=== PATIENT | male | born 1955 ===

== ENCOUNTER 2016-06-08 09:22 | Observation (INO) | payer OTHER ==
[2016-06-08 10:10] LABS: % IMMATURE GRANULYOCYTES 0.9 % (0.0-1.1); ABSOLUTE IMMATURE GRANULOCYTES 0.05 10^3/uL (0.00-0.10); ADD DIFF? NO; ADD MORPH? NO; ADD SCAN? NO; ATYPICAL LYMPHOCYTE FLAG 20 (0-99); FRAGMENT RBC FLAG 0 (0-99); HEMATOCRIT 41.5 % (40.0-51.0); LEFT SHIFT FLG 0 (0-99); LIPEMIA HEMOLYSIS FLAG 90 (0-99); MEAN CELL HEMOGLOBIN 30.5 pg (27.9-34.1); MEAN CELL HEMOGLOBIN CONCENTR. 36.1 g/dL (32.4-36.7); MEAN CELL VOLUME 84.5 fL (81.5-99.8); MEAN PLATELET VOLUME 8.8 fL (8.7-11.7); PLATELET CLUMPS FLAG 10 (0-99); PLATELET COUNT 205 10^3/uL (150-400); RED BLOOD CELL COUNT 4.91 10^6/uL (4.40-6.38); RED CELL DISTRIBUTION WIDTH 12.3 % (11.5-15.2)
--- NOTE | 2016-06-08 10:11 | CPEKG ---
Heart Rate: 75 RR Interval: 800 P-R Interval: 176 QRSD Interval: 90 QT Interval: 388 QTC Interval: 434 P [place]: 41 QRS [place]: -52 T Wave [place]: 31 EKG Severity - ABNORMAL ECG - EKG Impression: SINUS RHYTHM EKG Impression: LEFT ANTERIOR FASCICULAR BLOCK Electronically Signed By: Blake Wright 08-Jun-2016 15:43:50
--- NOTE | 2016-06-08 10:12 | EDPHY ---
H & P Stated Complaint: RUQ abd pain/nausea Time Seen by Provider: 06/08/16 09:34 HPI/ROS: CHIEF COMPLAINT: abdominal pain HISTORY OF PRESENT ILLNESS: 61-year-old male presents complaining mild intermittent nausea for the past 5 days and abdominal pain right upper quadrant that woke him up from his sleep at 1:30 a.m. patient reports this was associated with severe nausea. He took a Percocet and was able to fall back asleep and wakes up this morning with a right upper quadrant abdominal fullness and tenderness. He denies vomiting, he reports diarrhea for the past 4 days. No fevers or chills, no back pain, no difficulty urinating. He denies chest pain or shortness of breath. Patient reports a history of cholecystitis though at the same time he had Giardia and he did not have a cholecystectomy. He has had no symptoms since this time. Patient denies dark tarry stools, no blood in his stool. REVIEW OF SYSTEMS: A comprehensive 10 point review of systems is otherwise negative aside from elements mentioned in the history of present illness. Source: Patient Exam Limitations: No limitations - Personal History Current Tetanus/Diphtheria Vaccine: Yes - Medical/Surgical History Hx Asthma: No Hx Chronic Respiratory Disease: No Hx Diabetes: Yes Hx Cardiac Disease: No Hx Renal Disease: No Hx Cirrhosis: No Hx Alcoholism: No Hx HIV/AIDS: No Hx Splenectomy or Spleen Trauma: No Other PMH: Orthopedic surgery, med hx-diabetes type 2 - Social History Smoking Status: Never smoked - Physical Exam Exam: Physical Exam Gen: Alert and Oriented, NAD HEENT: PERRL, moist mucous membranes NECK: no meningismus CV: regular rate and regular rhythm PULM: CTAB, no wheezes ABDOMEN: soft, diffuse abdominal tenderness to palpation, worse in right lower quadrant. No rebound tenderness, positive Rovsing's. BS present BACK: No CVA tenderness NEURO: Neurologically grossly intact EXTREMITIES: normal appearing SKIN: no rash or break in skin on exposed skin PSYCH: answers questions appropriately. Constitutional: Initial Vital Signs Temperature (C) 36.4 C 06/08/16 09:25 Heart Rate 87 06/08/16 09:25 Respiratory Rate 18 06/08/16 09:25 Blood Pressure 128/81 H 06/08/16 09:25 O2 Sat (%) 94 06/08/16 09:25 O2 Delivery Mode Room Air Allergies/Adverse Reactions: Shellfish *RETIRED-01/26/12 [Shellfish] Allergy (Unknown, Verified 06/08/16 09: 23) Home Medications: Medication Instructions Recorded Simvastatin [Zocor 10 mg (RX)] 10 mg PO DAILY 02/21/12 Insulin Glargine [Lantus 100 15 units SC DAILY 02/01/14 UNITS/ML (*)] Insulin Lispro [humALOG LISPRO 100 10 unit SC TIDMEAL 11/05/15 units/ml (*)] Omeprazole [Prilosec 20 mg] 20 mg PO DAILY 03/14/16 Medical Decision Making - Diagnostics EKG Interpretation: EKG shows normal sinus rhythm, rate 75, left axis deviation, poor R-wave progression, no ST or T-wave abnormalities, no changes to comparison ekg in 2016. Imaging: Right upper quadrant ultrasound- IMPRESSIONS: 1. Diffuse gallbladder wall thickening, similar to prior study. There appears to be a gallstone lodged within the gallbladder neck. Findings suggest chronic cholecystitis. 2. Stable complex partially calcified right renal cysts. 3. Nonvisualization of the appendix. Results called to Lashell Guevara PA-C at the time of the interpretation. Dictated By: Jose Villatoro MD ED Course/Re-evaluation: 61-year-old insulin-dependent diabetic, nontoxic-appearing male presents with right upper and lower abdominal pain nausea and diarrhea. IV established, i- STAT, CBC, lipase and LFTs ordered along with an EKG and abdominal ultrasound. I-STAT chemistry panel shows normal electrolytes, creatinine of 0.7, blood glucose of 126. CBC is unremarkable, lipase is normal, LFTs are normal. 1200pm- Dr. Whitehead at bedside. 1300-Dr. Whitehead with the patient and take him to surgery to remove his gallbladder today. - Data Points Laboratory Results: Laboratory Results 06/08/16 09:58 06/08/16 09:58 WBC 5.85 10^3/uL (3.80-9.50) RBC 4.91 10^6/uL (4.40-6.38) Hgb 15.0 g/dL (13.7-17.5) POC Hgb 14.6 gm/dL (14.5-17.3) Hct 41.5 % (40.0-51.0) POC Hct 43 % (42.8-50.6) MCV 84.5 fL (81.5-99.8) MCH 30.5 pg (27.9-34.1) MCHC 36.1 g/dL (32.4-36.7) RDW 12.3 % (11.5-15.2) Plt Count 205 10^3/uL (150-400) MPV 8.8 fL (8.7-11.7) Neut % (Auto) 51.6 % (39.3-74.2) Lymph % (Auto) 36.4 % (15.0-45.0) [place] % (Auto) 7.0 % (4.5-13.0) Eos % (Auto) 2.9 % (0.6-7.6) Baso % (Auto) 1.2 % (0.3-1.7) Nucleat RBC Rel Count 0.0 % (0.0-0.2) Absolute Neuts (auto) 3.02 10^3/uL (1.70-6.50) Absolute Lymphs (auto) 2.13 10^3/uL (1.00-3.00) Absolute Monos (auto) 0.41 10^3/uL (0.30-0.80) Absolute Eos (auto) 0.17 10^3/uL (0.03-0.40) Absolute Basos (auto) 0.07 10^3/uL (0.02-0.10) Absolute Nucleated RBC 0.00 10^3/uL (0-0.01) Immature Gran % 0.9 % (0.0-1.1) Immature Gran # 0.05 10^3/uL (0.00-0.10) POC Sodium 142 mEq/L (134-144) POC Potassium 3.9 mEq/L (3.3-5.0) POC Chloride 105 mEq/L (96-108) POC BUN 24 H mg/dL (7-23) POC Creatinine 0.7 L mg/dL (0.8-1.5) POC Glucose 126 H mg/dL (70-100) Total Bilirubin 0.8 mg/dL (0.1-1.4) Conjugated Bilirubin 0.2 mg/dL (0.0-0.5) Unconjugated Bilirubin 0.6 mg/dL (0.0-1.1) AST 22 IU/L (17-59) ALT 33 IU/L (21-72) Alkaline Phosphatase 67 IU/L (38-126) Total Protein 7.1 g/dL (6.3-8.2) Albumin 4.1 g/dL (3.5-5.0) Lipase 47.0 IU/L (23-300) Point of Care Test Results: 06/08/16 09:58 POC Sodium 142 POC Potassium 3.9 POC Chloride 105 POC BUN 24 H POC Creatinine 0.7 L POC Glucose 126 H Departure - Departure Disposition: [facility] Inpatient Acute Clinical Impression: Cholecystitis Condition: Good
[2016-06-08 10:23] LABS: ALBUMIN 4.1 g/dL (3.5-5.0); BILIRUBIN,TOTAL 0.8 mg/dL (0.1-1.4); BILIRUBIN-CONJUGATED 0.2 mg/dL (0.0-0.5); BILIRUBIN-UNCONJUGATED 0.6 mg/dL (0.0-1.1); TOTAL PROTEIN 7.1 g/dL (6.3-8.2)
--- NOTE | 2016-06-08 11:34 | US ---
RIGHT UPPER QUADRANT ULTRASOUND EXAMINATION WITH ADDITIONAL LIMITED ULTRASOUND OF THE RIGHT LOWER RICHA ROSS June 08, 2016 HISTORY: Right upper quadrant pain. COMPARISON STUDY: February 10, 2014. FINDINGS Right Upper Quadrant Ultrasound: The pancreas is unremarkable as visualized. Abdominal aorta is meli l in caliber. No discrete hepatic mass. Diffuse gallbladder wall thickening is again noted, similar t o prior examination, measuring up to 7 mm in width. There is at least one gallstone identified lodged within the gallbladder neck, measuring 1.2 cm in size. The common bile duct is normal in size at 3 m m. Right kidney is normal in size and shape, 11 cm sagittal diameter with a partially calcified compl ex cyst in the lower pole, similar to previous study, 1.3 cm in size. Right Lower Quadrant Ultrasound: Limited evaluation of the right lower quadrant is negative. The appe ndix is not visualized. No peritoneal free fluid. IMPRESSIONS: 1. Diffuse gallbladder wall thickening, similar to prior study. There appears to be a gallstone lodge d within the gallbladder neck. Findings suggest chronic cholecystitis. 2. Stable complex partially calcified right renal cysts. 3. Nonvisualization of the appendix. Results called to Lashell Guevara PA-C at the time of the interpretation.
[2016-06-08] MEDS ORDERED: ONDANSETRON 4 MG/2 ML VIAL IVP PRN (14:39)
[2016-06-08] MEDS ORDERED: D5W 1/2 NS W/ 20 KCl/L 1,000 ML IV SCH (14:45)
--- NOTE | 2016-06-08 15:17 | GHP ---
[f rep st] PREOP HISTORY AND PHYSICAL DATE OF ADMISSION: 06/08/2016 HISTORY OF PRESENT ILLNESS: The patient is a 61-year-old male diabetic who presents with right upper quadrant pain and nausea. Gallbladder ultrasound reveals a thickened wall with a stone impacted in the neck of the gallbladder. LFTs are normal. He had a similar episode approximately 3 years ago, a t which time he decided not to have surgery. He is admitted at this time for a laparoscopic cholecys tectomy. Risks and options have been fully discussed including bile duct injury, hemorrhage, infecti on, conversion to an open procedure and other problems. He requests that we proceed. REVIEW OF SYSTEMS: Negative, except as related to his diabetes. Denies any cardiopulmonary symptoms . He does not smoke. PAST MEDICAL HISTORY: Includes shoulder labrum repair and diabetes, on insulin. PHYSICAL EXAMINATION: GENERAL: An alert, comfortable 61-year-old male in no acute distress. HEAD a nd NECK: No icterus or adenopathy. CHEST: Clear. Breath sounds are symmetric. CARDIAC: Regular rate and rhythm without murmurs. ABDOMEN: Soft. He is tender in the right upper quadrant without r ebound or guarding. There are some bowel sounds. EXTREMITIES: Benign, with full pulses. ALLERGIES: None. MEDICATIONS: Lantus, Humalog, omeprazole and Zocor. IMPRESSION: Cholecystitis and cholelithiasis. PLAN: Laparoscopic cholecystectomy. Again, the risks and options have been fully discussed, and he wishes to proceed. /[id number]/MODL
[2016-06-08] MEDS: ERTAPENEM 1 GM in NS 100 ML IV SCH (16:13)
[2016-06-08] MEDS: PANTOPRAZOLE SODIUM 40 MG in NS 100 ML IV SCH (16:54)
[2016-06-08 17:40] LABS: COLOR YELLOW; LEUKOCYTE ESTERASE,URINE NEGATIVE (NEGATIVE); NITRITE,URINE NEGATIVE (NEGATIVE)
[2016-06-08] MEDS ORDERED: BUPIVACAINE 0.5% 30 ML SDV ONE (18:17)
[2016-06-08] MEDS ORDERED: HEPARIN 1000 UNIT/1 ML MDV ONE (18:17)
[2016-06-08] MEDS ORDERED: ceFAZolin 1 GM/5 ML SYR ONE (18:17)
[2016-06-08] MEDS ORDERED: MIDAZOLAM 2 MG/2 ML VIAL ONE (18:49)
[2016-06-08] MEDS ORDERED: fentaNYL 250 MCG/5 ML INJ ONE (19:06)
[2016-06-08] MEDS ORDERED: PROPOFOL/EMULSION 500 MG/50 ML BOTTLE IV ONE (19:06)
[2016-06-08] MEDS ORDERED: LABETALOL HCL 5 MG/ML 20 ML MDV ONE (19:41)
[2016-06-08] MEDS ORDERED: DEXAMETHASONE 4 MG/ML VIAL ONE (19:41)
[2016-06-08] MEDS ORDERED: ONDANSETRON 4 MG/2 ML VIAL ONE (19:41)
[2016-06-08] MEDS ORDERED: SUGAMMADEX SODIUM 200 MG/2 ML VIAL IVP ONE (19:51)
[2016-06-08] MEDS ORDERED: ROCURONIUM 100 MG/10 ML VIAL ONE (19:51)
[2016-06-08] MEDS ORDERED: fentaNYL 100 MCG/2 ML INJ ONE (20:15)
[2016-06-08] MEDS ORDERED: PROMETHAZINE HCL 25 MG/ML INJ ONE (20:18)
[2016-06-08] MEDS ORDERED: OXYCODONE/APAP 5/325 TAB PO PRN (20:27)
--- NOTE | 2016-06-08 20:40 | POSTOPPROG ---
Post Op Note Date of Operation: 06/08/16 Surgeon: Miguel Whitehead Anesthesiologist: JEROD Anesthesia: GET(General Endotracheal) Pre-op Diagnosis: ACUTE CHOLECYSTITIS Post-op Diagnosis: SAME Indication: PAIN Procedure: LAP SHON Findings: ACUTE CHOLECYSTITIS WITH SINGLE STONE Inf/Abcess present in the surg proc area at time of surgery?: Yes Depth: Organ Space EBL: Minimal Complications: 0 Specimen(s): GB
[2016-06-08] MEDS ORDERED: D50W 25 GM/50 ML SYR IVP PRN (20:52)
[2016-06-08] MEDS ORDERED: 1/2 NS 1,000 ML IV SCH (21:00)
[2016-06-08] MEDS: KETOROLAC 15 MG/1 ML SDV IVP SCH (21:25)
[2016-06-08] MEDS: INSULIN REGULAR HUMAN 100 UNIT/ML SC SCH (21:34)
--- NOTE | 2016-06-08 22:03 | GOP ---
[f rep st] OPERATIVE REPORT DATE OF OPERATION: 06/08/2016 SURGEON: Miguel Whitehead MD PREOPERATIVE DIAGNOSIS: Acute cholecystitis. POSTOPERATIVE DIAGNOSIS: Acute cholecystitis. PROCEDURE PERFORMED: Laparoscopic cholecystectomy. FINDINGS: The patient was found to have acute cholecystitis. He had a single stone. Ducts were sma ll. DESCRIPTION OF PROCEDURE: The patient was taken to the operating room where he received satisfactory general endotracheal anesthesia by Dr. Montanez, placed in the supine position, prepped and draped in usual sterile fashion. A periumbilical incision was made. A Veress needle was inserted. Pneumop eritoneum was established. Trocar was introduced. Laparoscope introduced. Good visualization was o btained. Three other trocars were placed in the upper abdomen under direct vision. The gallbladder was elevated up. Adhesions were taken down. The cystic triangle was carefully exposed. The cystic duct was dissected free from surrounding structures, as was the cystic artery. Both were multiply he moclipped and divided with care to avoid injury to the common bile duct, which was clearly seen. A c lear view was obtained prior to clipping or dividing any structures. The peritoneum of the gallbladd er was incised and the gallbladder was dissected free from the bed in the hepatic fossa and extracted through the upper midline port site. The wound was irrigated. Hemostasis was assured. Trocars wer e removed under direct vision. Trocar sites were closed with 0 Vicryl for the fascia, a 4-0 Vicryl s ubcuticular stitch for the skin. All layers were infiltrated with 0.5% Marcaine. Blood loss negligi ble. Taken to the recovery room in good condition. /[id number]/MODL
--- NOTE | 2016-06-08 22:08 | GCON ---
[f rep st] CONSULTATION INTERNAL MEDICINE CONSULTATION. DATE OF CONSULTATION: 06/08/2016 REFERRING PHYSICIAN: Miguel Whitehead MD REASON FOR CONSULTATION: Medical management of diabetes perioperatively. HISTORY: The patient is a 61-year-old male who presented to the emergency room today with right upper quadrant pain and nausea. He was found on gallbladder ultrasound to have a thickened gallbladder wall with a stone in the neck of the gallbladder. His LFTs and lipase were normal. He had a similar episode 3 years ago. At that time, he declined surgery. He normally takes his insulin in the morning. While he was n.p.o. through most of the day today, he was on D5. He is now postoperatively being advanced to clear liquids. His last glucose check was 189. He is feeling a little rough immediately postoperative in the PACU but nothing outside of what would be anticipated in an immediate postoperative state. PAST MEDICAL HISTORY: Diabetes type 2 diagnosed in his 50s. MEDICATIONS: Please see computer for full detailed list. ALLERGIES: Shellfish. SOCIAL HISTORY: No smoking. Occasional alcohol. Lives with his . REVIEW OF SYSTEMS: Complete review of systems obtained. Review of systems is negative for constitutional, HEENT, GI, pulmonary, cardiovascular, , hematology, musculoskeletal, endocrine, psychiatry. There were positives and negatives as in HPI. FAMILY HISTORY: Reviewed, noncontributory to presenting complaint. PHYSICAL EXAMINATION: GENERAL: Well-developed, well-nourished male, in no acute distress. VITAL SIGNS: Temperature is 36.6, pulse 82, blood pressure 133 /92, saturating 96% 2 L. Eyes: Normal conjunctivae. Pupils react to light. ENT: Normal ears, nose. Hearing intact. Normal lips and teeth. Oropharynx moist. NECK: Trachea midline. No thyromegaly. CHEST: Normal effort. LUNGS: Clear to auscultation bilaterally. Cardiovascular: Regular rate and rhythm. No murmur. No lower extremity edema. ABDOMEN: Soft, nontender. No hepatosplenomegaly. SKIN: Warm, dry, intact. No rash. MUSCULOSKELETAL: No cyanosis or clubbing. Strength 5/5 upper and lower extremities. NEUROLOGIC: Cranial nerves intact. Normal sensation to light touch. PSYCHIATRIC: Alert and oriented x3. Normal affect. Normal judgment and insight. Normal memory. LABORATORY DATA: White count 5.8, hematocrit 41.5, platelets 205, sodium 142, potassium 3.6, chloride 108, bicarb 21, BUN 21, creatinine 0.7, glucose 78. LFTs are normal. Lipase is normal. Urinalysis is negative. EKG viewed by me. My personal interpretation is normal sinus rhythm. No ST-T changes. Abdominal ultrasound shows a gallstone at the gallbladder neck with chronic cholecystitis. This case was discussed with Dr. Whitehead. He is requesting internal medicine followup for diabetes management. ASSESSMENT/PLAN: 1. Diabetes type 2. He is, however, insulin-dependent. I will remove the D5 from his IV fluids as his glucose is now increasing. This will be followed closely. He has been advanced to clear liquids and anticipate his diet will be advanced further in the morning. He can take his usual 30 units of Lantus tomorrow morning. We will also cover with regular insulin sliding scale. 2. Acute on chronic cholecystitis with a stone at the neck of the gallbladder. LFTs and lipase are normal. He is status post laparoscopic cholecystectomy. Anticipate an uncomplicated recovery. 3. Internal Medicine will continue to follow throughout his hospitalization. Thank you very much for this consultation. /[id number]/MODL MTDD
[2016-06-08 23:34] VITALS: RESP 16
[2016-06-09] MEDS: HYDROmorphONE/DILAUDID 1 MG/ML SYR IVP PRN ×2 (01:19→06:06)
[2016-06-09] MEDS: KETOROLAC 15 MG/1 ML SDV IVP SCH ×2 (03:32→10:35)
[2016-06-09 06:38] LABS: ANION GAP 7 mEq/L (8-16); CALCIUM 8.8 mg/dL (8.5-10.4); CARBON DIOXIDE 24 mEq/l (22-31); CHLORIDE 105 mEq/L (97-110); CREATININE 0.7 mg/dL (0.7-1.3); GLOMERULAR FILTRATION RATE > 60; GLUCOSE 186 mg/dL (70-100); POTASSIUM 4.6 mEq/L (3.5-5.2); SODIUM 136 mEq/L (134-144)
--- NOTE | 2016-06-09 08:27 | SOAPPROG ---
SOAP Progress Note Assessment/Plan: Assessment: 61yo male s/p lap zechariah doing well, little sore, tolerating soup, wants to go home PE appears well, walking around room Abdomen nondistended, incisions clean/dry, nontender abdomen Plan: d/c home if tolerates regular diet 06/09/16 08:26 Objective: Vital Signs Temp Pulse Resp BP Pulse Ox 36.3 C 92 16 135/82 H 97 06/09/16 03:35 06/09/16 03:35 06/09/16 03:35 06/09/16 03:35 06/09/16 03:35 Laboratory Results 06/09/16 06:00 06/08/16 06/09/16 06/10/16 05:59 05:59 05:59 Intake Total 3175 Output Total 860 Balance 2315 ICD10 Worksheet Patient Problems: Problems Problem Status Diagnosed Cholecystitis Acute
[2016-06-09 08:29] VITALS: BP 130/80; PULSE 88; TEMP 97.8; O2SAT 95
[2016-06-09] MEDS ORDERED: PANTOPRAZOLE SODIUM 40 MG TAB PO SCH (09:00)
[2016-06-09] MEDS ORDERED: NON-FORMULARY NEW DRUG (Omeprazole [Omeprazole] 20 MG) PO SCH (09:00)
[2016-06-09] MEDS ORDERED: INSULIN GLARGINE 100 UNITS/ML SYRINGE SC SCH (09:00)
[2016-06-09] MEDS: ERTAPENEM 1 GM in NS 100 ML IV SCH (09:08)
[2016-06-09] MEDS: INSULIN REGULAR HUMAN 100 UNIT/ML SC SCH (09:42)
[2016-06-09] MEDS: PANTOPRAZOLE SODIUM 40 MG in NS 100 ML IV SCH (09:58)
== END 2016-06-09 11:00 | disposition home or self-care (01) ==
LOC: INTOOBSV 13:45 → FOB 15:31
PROVIDERS: ADMIT Surgery; ATTEND Surgery
PROC: 0FT44ZZ Resection of Gallbladder, Percutaneous Endoscopic Approach (ICD-10-PCS; principal; 2016-06-08 19:01)
DX: K81.2 Acute cholecystitis with chronic cholecystitis (principal); E11.9 Type 2 diabetes mellitus without complications; K21.9 Gastro-esophageal reflux disease without esophagitis
CPT/HCPCS: 47562; 76705; 93005; G0378; 82947-QW; 96374; J1100; J1170; J1335; J1815; J1885; J2250; J2405; J2550; J2704; J3010; J3490